=== PATIENT | female | born 1995 | race Caucasian/White ===

== ENCOUNTER 2017-07-31 20:08 | Emergency (ER) | payer BC, OTHER ==
--- NOTE | 2017-07-31 21:49 | ER Document Report ---
ED General - General Chief Complaint: Chest Pain Stated Complaint: CHEST PAINS Time Seen by Provider: 07/31/17 21:05 Notes: Patient is a 22-year-old female who comes emergency department for chief complaint of pain in her chest. Symptoms have been going on for over a week, symptoms are intermittent, pain is sharp, patient states the pain is along her sternum and goes up towards both sides (she points). She denies injury, she states she had a cold with a sore throat but no cough. She states she was seen by urgent care and told she has bronchitis, went back to urgent care for the pain today and told to come to the emergency department. She denies current symptoms, she denies shortness of breath, she does take oral contraceptive, she takes no daily medications otherwise. She denies smoking. She denies lower extremity swelling, recent travel, or personal/family history of blood clots. - Related Data Allergies/Adverse Reactions: No Known Allergies Allergy (Unverified 07/31/17 20:11) Past Medical History - General Information source: Patient, Parent - Social History Smoking Status: Never Smoker Chew tobacco use (# tins/day): No Frequency of alcohol use: None Drug Abuse: None Lives with: Family Family History: Reviewed & Not Pertinent Patient has suicidal ideation: No Patient has homicidal ideation: No - Medical History Medical History: Negative Renal/ Medical History: Denies: Hx Peritoneal Dialysis Surgical Hx: Negative - Immunizations Immunizations up to date: Yes Hx Diphtheria, Pertussis, Tetanus Vaccination: Yes Review of Systems - Review of Systems Constitutional: No symptoms reported EENT: See HPI Cardiovascular: See HPI Respiratory: See HPI Gastrointestinal: No symptoms reported Genitourinary: No symptoms reported Female Genitourinary: No symptoms reported Musculoskeletal: See HPI Skin: No symptoms reported Hematologic/Lymphatic: No symptoms reported Neurological/Psychological: No symptoms reported Physical Exam - Vital signs Vitals: Temp Pulse Resp BP Pulse Ox 98.2 F 75 18 130/91 H 98 07/31/17 20:34 07/31/17 20:34 07/31/17 20:34 07/31/17 20:34 07/31/17 20:34 Interpretation: Normal - General General appearance: Appears well, Alert In distress: None - HEENT Head: Normocephalic, Atraumatic Eyes: Normal Conjunctiva: Normal Extraocular movements intact: Yes Eyelashes: Normal Pupils: PERRL Nasal: Normal Mouth/Lips: Normal Mucous membranes: Normal Pharynx: Normal Neck: Normal - Respiratory Respiratory status: No respiratory distress. No: Respiratory distress, Labored , Tachypnea Chest status: Tender - reproducible tenderness along the lower sternal border bilaterally, no erythema, swelling, crepitus, or other abnormality noted Breath sounds: Normal. No: Decreased air movement, Wheezing Chest palpation: Normal - Cardiovascular Rhythm: Regular Heart sounds: Normal auscultation Murmur: No - Abdominal Inspection: Normal Distension: No distension Bowel sounds: Normal Tenderness: Nontender Organomegaly: No organomegaly - Back Back: Normal, Nontender - Extremities General upper extremity: Normal inspection, Nontender, Normal color, Normal ROM , Normal temperature General lower extremity: Normal inspection, Nontender, Normal color, Normal ROM , Normal temperature, Normal weight bearing. No: Olena's sign - Neurological Neuro grossly intact: Yes Cognition: Normal Orientation: AAOx4 Valorie Coma Scale Eye Opening: Spontaneous Valorie Coma Scale Verbal: Oriented Valorie Coma Scale Motor: Obeys Commands Valorie Coma Scale Total: 15 Speech: Normal Motor strength normal: LUE, RUE, LLE, RLE Sensory: Normal - Psychological Associated symptoms: Normal affect, Normal mood - Skin Skin Temperature: Warm Skin Moisture: Dry Skin Color: Normal Course - Re-evaluation Re-evalutation: EKG sinus rhythm with with no T-wave inversions or ST segment changes in consecutive leads, normal EKG otherwise. Chest x-ray unremarkable, shows scoliosis. Based on presentation, examination, vital signs, workup I have very low suspicion of PE or ACS. Patient's presentation does not suggest aortic dissection, patient has palpable tenderness over the costochondral areas consistent with costochondritis. Discussed treatment of this, workup, follow-up , return precautions. Patient states understanding and agreement. - Vital Signs Vital signs: Temp Pulse Resp BP Pulse Ox 97.4 F 76 16 132/84 H 99 07/31/17 22:40 07/31/17 22:40 07/31/17 22:40 07/31/17 22:40 07/31/17 22:40 Discharge - Discharge Clinical Impression: Chest wall pain Condition: Stable Disposition: HOME, SELF-CARE Additional Instructions: Your exam, workup, and symptoms, are most consistent with costochondritis. See additional details below. Take anti-inflammatory as prescribed, apply heat to the area of your chest several times a day, stay hydrated. Follow-up with primary care. Return for any concerning symptoms including difficulty breathing, vomiting, spiking fever, etc. Your chest pain is coming from the rib cartilages in the chest wall. This is often caused by subtle straining of the ribs near the breastbone. Rest from strenuous physical activity. This kind of chest pain is usually made worse by movement of the chest. Depending on the symptoms, we may prescribe medicine for pain and inflammation. Apply gentle warmth to the painful area for 15 minutes every hour or two. You should call contact the doctor immediately if things change. Further evaluation is needed if you develop a fever or cough, if the nature of the pain changes, or if you become short of breath. Prescriptions: Naproxen 500 mg PO BID PRN #20 tablet PRN Reason:
--- NOTE | 2017-07-31 22:17 | RADIOLOGY REPORT (SQ) ---
EXAM DESCRIPTION: CHEST PA/LAT COMPLETED DATE/TIME: 07/31/2017 10:08 pm REASON FOR STUDY: chest pain COMPARISON: None. EXAM PARAMETERS: NUMBER OF VIEWS: two views TECHNIQUE: Digital Frontal and Lateral radiographic views of the chest acquired. RADIATION DOSE: NA LIMITATIONS: none FINDINGS: LUNGS AND PLEURA: No opacities, masses or pneumothorax. No pleural effusion. MEDIASTINUM AND HILAR STRUCTURES: No masses or contour abnormalities. HEART AND VASCULAR STRUCTURES: Heart normal size. No evidence for failure. BONES: No acute findings. Moderate scoliosis. HARDWARE: None in the chest. OTHER: No other significant finding. IMPRESSION: NO ACUTE CARDIOPULMONARY PROCESS. MODERATE SCOLIOSIS. TECHNICAL DOCUMENTATION: JOB ID: [id number] [employer]- All Rights Reserved
[2017-07-31 22:48] VITALS: BP 132/84
--- NOTE | 2017-08-01 10:22 | EKG REPORT ---
SEVERITY:- NORMAL ECG - SINUS RHYTHM : Confirmed by: Lawrence Euceda 01-Aug-2017 10:21:36
== END 2017-07-31 22:40 | disposition home or self-care (01) ==
LOC: ER 20:08
DX: R07.89 Other chest pain (principal)
CPT/HCPCS: 71046; 93005; 93010; 99284

== ENCOUNTER 2018-09-07 20:45 | Emergency (ER) | payer BC ==
[2018-09-07 23:48] LABS: ALANINE AMINOTRANSFERASE 362 U/L (9-52); ALBUMIN 4.3 g/dL (3.5-5.0); ALKALINE PHOSPHATASE 229 U/L (38-126); ANION GAP 9 (5-19); ASPARTATE AMINO TRANSFERASE 204 U/L (14-36); BILIRUBIN,DIRECT 0.5 mg/dL (0.0-0.4); BILIRUBIN,TOTAL 0.7 mg/dL (0.2-1.3); BLOOD UREA NITROGEN 6 mg/dL (7-20); CALCIUM 9.5 mg/dL (8.4-10.2); CARBON DIOXIDE 28 mmol/L (22-30); CHLORIDE 103 mmol/L (98-107); GLUCOSE 82 mg/dL (75-110); LIPASE 122.4 U/L (23-300); POTASSIUM 4.3 mmol/L (3.6-5.0); SODIUM 140.2 mmol/L (137-145); TOTAL PROTEIN 7.9 g/dL (6.3-8.2)
--- NOTE | 2018-09-08 00:21 | ER Document Report ---
ED GI/ - General Chief Complaint: Abdominal Pain Stated Complaint: ABDOMINAL PAIN Time Seen by Provider: 09/08/18 00:21 Primary Care Provider: JOSE DUDLEY MD [ACTIVE STAFF] - Follow up as needed SHAYNE ZIMMERMAN MD [ACTIVE STAFF] - Follow up as needed Mode of Arrival: Ambulatory Information source: Patient Notes: HISTORY OF PRESENT ILLNESS: Patient is a 23-year-old female with no significant past medical history who presents with abdominal pain that began "about 1 week ago." Location: Epigastric Onset: Gradual Alleviation: None Provocation: Eating Quality: Aching, burning Radiation: "Around to the back" Severity: Moderate, severe at worst Timing: Intermittent initially, now constant History of abdominal surgery: None Associated symptoms: Mild nausea but no vomiting, no fevers or chills, normal bowel movements, no vaginal bleeding or discharge Last bowel movement: Today and normal Last menstrual period: "Earlier this month" REVIEW OF SYSTEMS: CONSTITUTIONAL : Denies fever or chills, no sweats. Denies recent illness. EENT: Denies eye, ear, throat, or mouth pain or symptoms. Denies nasal or sinus congestion. CARDIOVASCULAR: Denies chest pain. Denies swelling of the legs. RESPIRATORY: Denies cough, cold, or chest congestion. Denies shortness of breath or difficulty breathing. Denies wheezing. GASTROINTESTINAL: Positive for abdominal pain. Denies nausea, vomiting, or diarrhea. Denies constipation. GENITOURINARY: Denies difficulty urinating, painful urination, burning, frequency, or blood in urine. FEMALE GENITOURINARY: Denies vaginal bleeding, abnormal or irregular periods. MUSCULOSKELETAL: Denies neck or back pain or joint pain or swelling. SKIN: Denies rash or skin lesions. HEMATOLOGIC : Denies easy bruising or bleeding. LYMPHATIC: Denies swollen, enlarged glands. NEUROLOGICAL: Denies altered mental status or loss of consciousness. Denies headache. Denies weakness or paralysis or loss of use of either side. Denies problems with gait or speech. Denies sensory or motor loss. PSYCHIATRIC: Denies anxiety or stress or depression. All other systems reviewed and negative. PHYSICAL EXAMINATION: GENERAL: Well-appearing, well-nourished and in no acute distress. HEAD: Atraumatic, normocephalic. No scalp deformity, depression, or crepitance. EYES: Pupils are 3 mm and equal/round/reactive to light, extraocular movements intact, sclera anicteric, conjunctiva are normal. ENT: Nares patent bilaterally, oropharynx. Moist mucous membranes. No tonsil hypertrophy. NECK: Normal range of motion, supple without lymphadenopathy. LUNGS: Breath sounds present, equal, and clear to auscultation bilaterally. No wheezes, rales, or rhonchi. HEART: Regular rate and rhythm without murmurs, rubs, or gallops. 2+ peripheral pulses. Normal capillary refill. ABDOMEN: Soft and nondistended, mild to moderate epigastric tenderness without Fonseca sign. Normoactive bowel sounds. No guarding, no rebound. No masses appreciated. BACK: Normal contour, no midline tenderness. Rectal exam deferred. GENITAL/PELVIC: Deferred. EXTREMITIES: Normal range of motion, no pitting or edema. No cyanosis. NEUROLOGICAL: No focal neurological deficits. Moves all extremities spontaneously and on command. PSYCH: Normal mood, normal affect. No suicidal thoughts/ideations. No homocidal thoughts/ideations. No hallucinations. SKIN: Warm, dry, normal turgor, no rashes or lesions noted. ASSESSMENT AND PLAN: This patient is a 23-year-old female who presents with epigastric abdominal pain that could be pancreatitis versus gastritis versus cholecystitis versus cholelithiasis versus GERD. 1. Will obtain labs, urine, lipase, test, and gallbladder ultrasound. 2. Will if all are normal, will consider CT scan. TRAVEL OUTSIDE OF THE [place] IN LAST 30 DAYS: No - Related Data Allergies/Adverse Reactions: No Known Allergies Allergy (Unverified 07/31/17 20:11) Past Medical History - General Information source: Patient - Social History Smoking Status: Never Smoker Chew tobacco use (# tins/day): No Frequency of alcohol use: Occasional Drug Abuse: None Lives with: Family Family History: Reviewed & Not Pertinent Patient has suicidal ideation: No Patient has homicidal ideation: No - Past Medical History Cardiac Medical History: Reports: None Pulmonary Medical History: Reports: None EENT Medical History: Reports: None Neurological Medical History: Reports: None Endocrine Medical History: Reports: None Renal/ Medical History: Reports: None. Denies: Hx Peritoneal Dialysis Malignancy Medical History: Reports: None GI Medical History: Reports: None Musculoskeletal Medical History: Reports None Skin Medical History: Reports None Psychiatric Medical History: Reports: None Traumatic Medical History: Reports: None Infectious Medical History: Reports: None Surgical Hx: Negative Past Surgical History: Reports: None - Immunizations Immunizations up to date: Yes Hx Diphtheria, Pertussis, Tetanus Vaccination: Yes Physical Exam - Vital signs Vitals: Temp Pulse Resp BP Pulse Ox 99.2 F 91 16 130/76 H 99 09/07/18 20:51 09/07/18 20:51 09/07/18 20:51 09/07/18 20:51 09/07/18 20:51 Course - Re-evaluation Re-evalutation: 09/08/18 02:42 Labs show elevated LFTs and alkaline phosphatase. Right upper quadrant ultrasound shows either an adherent gallstone or more likely a gallbladder polyp that could be intermittently causing obstruction of the gallbladder. More importantly, there is no evidence of acute cholecystitis and the patient is safe to be discharged. She will be discharged home with return precautions and follow-up with outpatient surgery. Patient voices both understanding and agreeing with the plan. - Vital Signs Vital signs: Temp Pulse Resp BP Pulse Ox 98.2 F 83 16 118/72 100 09/08/18 02:44 09/08/18 02:44 09/08/18 02:44 09/08/18 02:44 09/08/18 02:44 - Laboratory Result Diagrams: 09/07/18 23:00 Laboratory results interpreted by me: 09/07/18 23:00 BUN 6 L Direct Bilirubin 0.5 H AST 204 H ALT 362 H Alkaline Phosphatase 229 H - Diagnostic Test Radiology reviewed: Image reviewed, Reports reviewed Discharge - Discharge Clinical Impression: Abdominal pain Qualifiers: Abdominal location: right upper quadrant Qualified Code(s): R10.11 - Right upper quadrant pain Cholelithiasis Qualifiers: Cholelithiasis location: gallbladder Cholecystitis acuity: acute Biliary obstruction: without biliary obstruction Condition: Good Disposition: HOME, SELF-CARE Additional Instructions: You have been evaluated in the Emergency Department for abdominal pain related to your gallbladder. While here, you had blood work with an ultrasound and it is now safe to be discharged home. Please follow-up with your primary doctor as well as a surgeon as instructed in the next week. Return to the Emergency Department if you experience worsening pain, uncontrollable nausea, high fevers, or any other concerning symptoms. Prescriptions: Ondansetron [Zofran Odt 4 mg Tablet] 1 tab PO Q6HP PRN #30 tab.rapdis PRN Reason: For Nausea/Vomiting Oxycodone HCl/Acetaminophen [Percocet 5-325 mg Tablet] 1 tab PO Q6HP PRN #28 tablet PRN Reason: For Pain Forms: Return to School Referrals: SHAYNE ZIMMERMAN MD [ACTIVE STAFF] - Follow up as needed JOSE DUDLEY MD [ACTIVE STAFF] - Follow up as needed Print Language: Upper Sorbian
[2018-09-08] MEDS ORDERED: MORPHINE SULFATE 10 MG/ML INJ IV ONE (00:44)
[2018-09-08] MEDS ORDERED: ONDANSETRON HCL INJ/PF 4 MG/2 ML SDV IV ONE (00:45)
[2018-09-08] MEDS ORDERED: KETOROLAC TROMETHAMINE INJ/PF 30 MG/1 ML SDV IV ONE (01:57)
--- NOTE | 2018-09-08 02:19 | RADIOLOGY REPORT (SQ) ---
EXAM DESCRIPTION: US ABDOMEN LIMITED COMPLETED DATE/TME: 09/08/2018 01:22 CLINICAL HISTORY: 23 years Female, Abdominal pain Comparison: LIMITATIONS: None. FINDINGS: 0.3 cm adherent stone or likely benign gallbladder polyp, negative sonographic Fonseca's test, liver, a 0.2-cm diameter common bile duct, no intrahepatic ductal dilation, 10-cm right kidney, partially obscured pancreas, visualized vasculature/abdominal aorta, and no significant ascites appear otherwise unremarkable. IMPRESSION: No acute findings. A 0.3 cm adherent gallstone or likely benign gallbladder polyp.
[2018-09-08 02:45] VITALS: BP 118/72
== END 2018-09-08 03:00 | disposition home or self-care (01) ==
LOC: ER 20:45
DX: K80.20 Calculus of gallbladder without cholecystitis without obstruction (principal); R10.13 Epigastric pain; R11.0 Nausea
CPT/HCPCS: 99284; 96374; 96375; 36415; 83690; 81025; 80053; 76705; J1885; J2270; J2405

== ENCOUNTER → 2019-08-01 | Outpatient (CLI) | payer BC ==
[2019-08-01 11:01] LABS: HEMATOCRIT 40.5 % (36.0-47.0); HEMOGLOBIN 13.8 g/dL (12.0-15.5); MEAN CORPUSCULAR HEMOGLOBIN 29.5 pg (27.0-33.4); MEAN CORPUSCULAR VOLUME 87 fl (80-97); PLATELET COUNT 151 10^3/uL (150-450); RED BLOOD COUNT 4.67 10^6/uL (3.72-5.28); RED CELL DISTRIBUTION WIDTH 13.4 % (11.5-14.0); WHITE BLOOD COUNT 6.4 10^3/uL (4.0-10.5)
[2019-08-01 11:28] LABS: ALBUMIN 4.6 g/dL (3.5-5.0); ALKALINE PHOSPHATASE 74 U/L (38-126); ANION GAP 12 (5-19); ASPARTATE AMINO TRANSFERASE 22 U/L (14-36); BILIRUBIN,DIRECT 0.3 mg/dL (0.0-0.4); BILIRUBIN,TOTAL 0.8 mg/dL (0.2-1.3); BLOOD UREA NITROGEN 14 mg/dL (7-20); CALCIUM 9.4 mg/dL (8.4-10.2); CARBON DIOXIDE 24 mmol/L (22-30); CHLORIDE 102 mmol/L (98-107); GLUCOSE 116 mg/dL (75-110); POTASSIUM 4.3 mmol/L (3.6-5.0); TOTAL PROTEIN 7.9 g/dL (6.3-8.2)
== END ==
LOC: OD 10:17
PROVIDERS: ATTEND Surgery
DX: Z01.818 Encounter for other preprocedural examination (principal); K80.20 Calculus of gallbladder without cholecystitis without obstruction; G43.909 Migraine, unspecified, not intractable, without status migrainosus
CPT/HCPCS: 36415; 80053; 85027

== ENCOUNTER 2019-08-05 07:05 | Day surgery (SDC) | payer BC ==
[~2019-08-05 07:05] MED LIST: ACETAMINOPHEN 325 MG TABLET PO PRN; CEFOXITIN SODIUM 2 GM in DEXTROSE 5%-WATER 100 ML IV PRN; IBUPROFEN 800 MG in NORMAL SALINE 250 ML IV PRN; RINGERS SOLUTION,LACTATED 1,000 ML IV PRN
[2019-08-05] MEDS ORDERED: ACETAMINOPHEN 325 MG TABLET ONE (08:05)
[2019-08-05] MEDS ORDERED: SCOPOLAMINE HYDROBROMIDE 1.5 MG PATCH.TD72 ONE (08:27)
[2019-08-05] MEDS ORDERED: PROPOFOL INJ 200 MG/20 ML VIAL IV ONE (09:15)
[2019-08-05] MEDS ORDERED: FENTANYL CITRATE INJ/PF 250 MCG/5 ML AMPULE ONE (09:15)
[2019-08-05] MEDS ORDERED: MIDAZOLAM 2 MG/2 ML INJ ONE (09:15)
[2019-08-05] MEDS ORDERED: MEPERIDINE HCL/PF INJ 25 MG/1 ML DISP.SYRIN IV PRN (09:40)
[2019-08-05] MEDS ORDERED: MORPHINE SULFATE 10 MG/ML INJ IV PRN (09:40)
[2019-08-05] MEDS ORDERED: PROMETHAZINE HCL INJ 25 MG/1 ML VIAL IV PRN (09:40)
[2019-08-05] MEDS ORDERED: FENTANYL CITRATE INJ/PF 100 MCG/2 ML AMPUL IV PRN ×3 (09:40)
[2019-08-05] MEDS ORDERED: DIPHENHYDRAMINE HCL 50 MG/ML VIAL IV PRN (09:40)
[2019-08-05] MEDS: BUPIVACAINE HCL 0.25 % INJ/PF (2.5 MG/1 ML) 30 ML VIAL ONE ×2 (09:44→09:55)
--- NOTE | 2019-08-05 11:19 | Discharge Summary ---
Discharge Summary (SDC) - Discharge Final Diagnosis: Chronic cholecystitis Date of Surgery: 08/05/19 Discharge Date: 08/05/19 Condition: Stable Treatment or Instructions: Discharge home. Diet as tolerated. Activity: No lifting greater than 10 pounds. Follow-up with [facility] in 7 to 10 days. [place] 10/325 mg p.o. every 6 hours PRN for pain. Ibuprofen 800 mg p.o. 3 times daily with meals. Okay to shower in 48 hours. No tub baths or swimming pools x2 weeks. Prescriptions: Ibuprofen [Motrin 800 mg Tablet] 800 mg PO MEALS #42 tablet Hydrocodone/Acetaminophen [[place] 10-325 mg Tablet] 1 tab PO Q6HP PRN #15 tablet PRN Reason: Referrals: SHAYNE ZIMMERMAN MD [ACTIVE STAFF] - 08/15/19 8:45 am Discharge Diet: As Tolerated Respiratory Treatments at Home: Deep Breathing/Coughing, Incentive Spirometer Discharge Activity: No Lifting Over 10 Pounds, No Lifting/Push/Pulling Home Care Assistance: None Needed Report the Following to Your Physician Immediately: Shortness of Breath, Nausea, Vomiting, Yellow Skin, Fever over 101 Degrees, Unusual Bleeding, Redness
[2019-08-05] MEDS ORDERED: ACETAMINOPHEN 1,000 MG/100 ML RTUPB IV ONE (11:23)
--- NOTE | 2019-08-05 11:24 | Operative Report ---
Nonrecallable Operative Report DATE OF SURGERY: 08/05/19 PREOPERATIVE DIAGNOSIS: Symptomatic cholelithiasis POSTOPERATIVE DIAGNOSIS: Chronic cholecystitis OPERATION: Laparoscopic cholecystectomy. SURGEON: SHAYNE ZIMMERMAN ANESTHESIA: GA TISSUE REMOVED OR ALTERED: Gallbladder COMPLICATIONS: None apparent ESTIMATED BLOOD LOSS: Minimal PROCEDURE: Drains/implants: None. Procedure in detail: After informed consent was obtained, the patient was brought to the operating room and laid in the supine position. The area of the abdomen was prepped and draped in a normal sterile fashion. An infraumbilical incision was created with a 15 blade scalpel. Dissection was carried through the subcutaneous tissues using sharp and blunt dissection. The cicatrix was identified, grasped with a Sarah Beth clamp, and retracted upwards. The linea alba fascia was incised sharply, the abdomen is entered sharply. The balloon trocar was inserted, pneumoperitoneum was achieved. A subxiphoid 5 mm port was then placed under direct laparoscopic visualization. 2 more 5 mm ports were placed in the right upper quadrant in similar fashion. Atraumatic graspers were placed through the 5 mm ports. Gallbladder retracted cephalad and laterally. Dissection was begun in the triangle of Calot. The cystic duct and cystic artery were fully visualized and skeletonized, seeing the liver through the triangle. Once the critical view of safety was obtained, the cystic duct and cystic artery were clipped and cut with laparoscopic instrumen ts. The gallbladder was then removed from the liver using Bovie electrocautery. The gallbladder was then placed into an Endo Catch bag and pulled out the umbilicus. The camera was reinserted. The hilum was inspected. It is found to be free of any leakage of blood or bile. The abdomen was then copiously irrigated and suctioned until the effluent was clear. Next, the 5 mm trochars were removed under direct laparoscopic visualization. The infraumbilical trocar was removed, pneumoperitoneum was relieved. The infraumbilical fascia was then closed using 0 Vicryl suture in [id number] fashion. The overlying skin was closed using 4-0 Vicryl Rapide suture in subcuticular fashion. Dressings were placed, and the procedure was concluded. All sponge, instrument, needle counts were correct x2. Condition: Stable.
[2019-08-05] MEDS ORDERED: HYDROCODONE/ACETAMINOPHEN 10-325 MG TABLET ONE (12:06)
[2019-08-05] MEDS ORDERED: DIPHENHYDRAMINE HCL 50 MG/ML VIAL ONE (12:58)
[2019-08-05 14:07] VITALS: BP 121/79
[2019-08-05] MEDS ORDERED: ROCURONIUM BROMIDE INJ 50 MG/5 ML VIAL IV ONE (14:35)
[2019-08-05] MEDS ORDERED: ONDANSETRON HCL INJ/PF 4 MG/2 ML SDV ONE (14:35)
[2019-08-05] MEDS ORDERED: DEXAMETHASONE SOD PHOSPHATE INJ 4 MG/1 ML VIAL ONE (14:35)
== END 2019-08-05 14:05 | disposition home or self-care (01) ==
LOC: OROUT 07:05
PROVIDERS: ATTEND Surgery
DX: K80.20 Calculus of gallbladder without cholecystitis without obstruction (principal)
CPT/HCPCS: 86900; 86901; 36415; 86850; 81025; 88304 ×2; 47562; J2250; J3490; J1100; J1200; J3010; J2405; J7060; J7050; J2704; J0131; J1741; J0694